=== PATIENT | female | born 1950 | race Hispanic/Latino ===

== ENCOUNTER 2017-04-01 13:13 | Outpatient (CLI) | payer BC ==
--- NOTE | 2017-04-02 10:29 | Mammography Report ---
BILATERAL DIGITAL SCREENING MAMMOGRAM with CAD: 04/01/17 13:13:00 CLINICAL: Routine screening. COMPARISON:07/30/15 and 07/25/14 FINDINGS: There are scattered areas of fibroglandular density.Stable bilateral cardinal asymmetries. No mass, architectural distortion or suspicious calcifications. IMPRESSION: No mammographic evidence of malignancy. BI-RADS CATEGORY: 2 -- Benign RECOMMENDATION: Routine mammographic screening in one year. COMMENT: Patient follow-up letters are generated by our [employer] application.
== END 2017-04-01 13:14 | disposition home or self-care (01) ==
LOC: SPVWC 13:13
PROVIDERS: ATTEND Internal Medicine
DX: Z12.31 Encounter for screening mammogram for malignant neoplasm of breast (principal)
CPT/HCPCS: 77067; G0202

== ENCOUNTER 2017-09-01 15:52 | Outpatient (CLI) | payer BC, MEDICARE ==
--- NOTE | 2017-09-01 16:20 | XRay Report ---
CHEST TWO VIEWS: 09/01/17 15:52:00 CLINICAL: Hypertension. COMPARISON: None FINDINGS: Normal heart and pulmonary vasculature.Mild aortic tortuosity. The lungs are normally expanded and clear.Moderate degenerative changes in the spine. IMPRESSION: No acute cardiopulmonary process. Mild hypertensive changes in aorta.
== END 2017-09-01 15:53 | disposition home or self-care (01) ==
LOC: SPVIMAG 15:52
PROVIDERS: ATTEND Internal Medicine
DX: I10 Essential (primary) hypertension (principal); M47.894 Other spondylosis, thoracic region; Q25.46 Tortuous aortic arch
CPT/HCPCS: 71020

== ENCOUNTER 2019-10-17 13:49 | Outpatient (CLI) | payer BC ==
--- NOTE | 2019-10-17 16:06 | Mammography Report ---
DIGITAL SCREENING MAMMOGRAM WITH CAD, 10/17/2019 INDICATION: Routine screening mammography. TECHNIQUE: Digital bilateral 2D mammography was obtained in the craniocaudal and mediolateral obliq ue projections. This examination was interpreted with the benefit of Computer-Aided Detection analysi s. COMPARISON: 04/01/2017 and 07/30/2015 FINDINGS: Breast Density: There are scattered areas of fibroglandular density. There is no evidence of dominant mass, suspicious calcifications or architectural distortion in eithe r breast. IMPRESSION: No mammographic evidence of malignancy. Follow up recommendation: Routine yearly BI-RADS Category 1: Negative. A "normal" or negative report should not discourage follow up or biopsy of a clinically significant f inding. A written summary of these findings will be mailed to the patient. The patient will be entered into a mammography reporting system which will generate a reminder letter for the patient's next appointmen t at the appropriate interval. The [employer] recommends yearly mammograms starting at age 40 and continuing as l delmi as a woman is in good health. Breast MRI is recommended for women with an approximate 20-25% or greater lifetime risk of breast cancer, including women with a strong family history of breast or ova martha cancer or who have been treated for Hodgkin's disease. Signer Name: William Castanon MD Signed: 10/17/2019 4:02 PM Workstation Name: [id number]
== END 2019-10-17 13:50 | disposition home or self-care (01) ==
LOC: SPVWC 13:49
PROVIDERS: ATTEND Internal Medicine
DX: Z12.31 Encounter for screening mammogram for malignant neoplasm of breast (principal)
CPT/HCPCS: 77067

== ENCOUNTER 2020-11-26 13:01 | Outpatient (CLI) | payer MEDICARE, OTHER ==
--- NOTE | 2020-11-26 15:29 | Mammography Report ---
DIGITAL SCREENING MAMMOGRAM WITH CAD, 11/26/2020 CLINICAL INFORMATION / INDICATION: Routine screening mammography. TECHNIQUE: Digital bilateral 2D mammography was obtained in the craniocaudal and mediolateral obliqu e projections. This examination was interpreted with the benefit of Computer-Aided Detection analysis . COMPARISON: 07/30/2015 through 10/17/2019 prior mammograms. FINDINGS: Breast Density: There are scattered areas of fibroglandular density. No dominant mass, suspicious calcifications, or architectural distortion in either breast. No interval change. IMPRESSION: No mammographic evidence of malignancy. Follow up recommendation: Routine yearly BI-RADS Category 1: Negative. A "normal" or negative report should not discourage follow up or biopsy of a clinically significant f inding. A written summary of these findings will be mailed to the patient. The patient will be entered into a mammography reporting system which will generate a reminder letter for the patient's next appointmen t at the appropriate interval. The [employer] recommends yearly mammograms starting at age 40 and continuing as l delmi as a woman is in good health. Breast MRI is recommended for women with an approximate 20-25% or greater lifetime risk of breast cancer, including women with a strong family history of breast or ova martha cancer or who have been treated for Hodgkin's disease. Signer Name: Diana Pollard MD Signed: 11/26/2020 3:24 PM Workstation Name: [id number]
== END 2020-11-26 13:02 | disposition home or self-care (01) ==
LOC: SPVWC 13:01
PROVIDERS: ATTEND Internal Medicine
DX: Z12.31 Encounter for screening mammogram for malignant neoplasm of breast (principal)
CPT/HCPCS: 77067